=== PATIENT | male | born 1985 | race Caucasian/White ===

== ENCOUNTER 2020-02-18 06:32 | Emergency (ER) | payer MEDICAID ==
[2020-02-18] MEDS ORDERED: Ondansetron 4 MG/2 ML SDV IVPUSH ONE (06:57)
[2020-02-18] MEDS ORDERED: Sodium Chloride 0.9% 10 ML Syringe FLUSH PRN (06:57)
[2020-02-18] MEDS ORDERED: Sodium Chloride 0.9% 1,000 ML IV SCH (07:00)
--- NOTE | 2020-02-18 08:36 | EDM.PDOC ---
ED HPI GENERAL MEDICAL PROBLEM - General Chief Complaint: General Stated Complaint: HEADACHE/HAS A HEART CONDITION Time Seen by Provider: 02/18/20 06:53 Source of Information: Reports: Patient History Limitations: Reports: No Limitations - History of Present Illness INITIAL COMMENTS - FREE TEXT/NARRATIVE: The patient says this morning he had a headache. He took a couple aleve. His gave him some extends for male enhancement. After that he developed chest pain, shortness of breath, nausea and vomiting. He has never taken this medication before. He has no headache now. He has some mild generalized abdominal pain. He is sweaty. He has no medical problems. Onset: Sudden Duration: Hour(s): (1) Location: Reports: Head, Abdomen Quality: Reports: Ache Severity: Mild Improves with: Reports: None Worsens with: Reports: None Associated Symptoms: Reports: Chest Pain, Headaches, Nausea/Vomiting, Shortness of Breath. Denies: Cough, Fever/Chills - Related Data Allergies Allergy/AdvReac Type Severity Reaction Status Date / Time bee venom protein (honey bee) Allergy Difficulty Verified 02/18/20 06:40 Breathing lactose Allergy Diarrhea Verified 02/18/20 06:40 Home Meds: Home Meds Aspirin 81 mg PO DAILY 02/18/20 [History] Ondansetron [Zofran ODT] 4 mg PO Q6H PRN #20 tab.dis 02/18/20 [Rx] Past Medical History Cardiovascular History: Reports: Heart Murmur - Past Surgical History Cardiovascular Surgical History: Reports: Other (See Below) Other Cardiovascular Surgeries/Procedures: murmur and mitral valve sx Social & Family History - Family History Family Medical History: Noncontributory - Tobacco Use Smoking Status *Q: Current Every Day Smoker Years of Tobacco use: 20 Packs/Tins Daily: 0.3 - Caffeine Use Caffeine Use: Reports: Coffee, Soda, Tea - Recreational Drug Use Recreational Drug Use: Yes Recreational Drug Type: Reports: Marijuana/Hashish Recreational Drug Use Frequency: Weekly ED ROS GENERAL - Review of Systems Review Of Systems: See Below Constitutional: Reports: No Symptoms HEENT: Reports: No Symptoms Respiratory: Reports: Shortness of Breath Cardiovascular: Reports: Chest Pain Endocrine: Reports: No Symptoms GI/Abdominal: Reports: Abdominal Pain, Nausea, Vomiting : Reports: No Symptoms Musculoskeletal: Reports: No Symptoms ED EXAM, GENERAL - Physical Exam Exam: See Below Exam Limited By: No Limitations General Appearance: Alert, No Apparent Distress Ears: Normal External Exam Nose: Normal Inspection Head: Atraumatic, Normocephalic Neck: Normal Inspection Respiratory/Chest: No Respiratory Distress, Lungs Clear, Normal Breath Sounds Cardiovascular: Regular Rate, Rhythm, No Edema, No Murmur GI/Abdominal: Soft, Non-Tender, No Organomegaly, No Mass Extremities: Normal Inspection Neurological: Alert, Oriented, No Motor/Sensory Deficits EKG INTERPRETATION EKG Date: 02/18/20 Time: 08:47 Rhythm: NSR Rate (Beats/Min): 63 [place]: Normal P-Wave: Present QRS: Normal ST-T: Normal QT: Normal Course - Vital Signs Last Recorded V/S: Last Vital Signs Temp 96.5 F L 02/18/20 06:41 Pulse 68 02/18/20 06:41 Resp 18 02/18/20 06:41 BP 134/96 H 02/18/20 06:41 Pulse Ox 100 02/18/20 06:41 - Orders/Labs/Meds Orders: Active Orders 24 hr Category Date Time Status Cardiac Monitoring [RC] . DIRECTED Care 02/18/20 06:57 Active EKG Documentation Completion [RC] STAT Care 02/18/20 06:58 Active Peripheral IV Care [RC] . DIRECTED Care 02/18/20 06:57 Active Chest 1V Frontal [CR] Stat Exams 02/18/20 06:58 Taken Head wo Cont [CT] Stat Exams 02/18/20 06:59 Taken Sodium Chloride 0.9% [Normal Saline] 1,000 ml Med 02/18/20 07:00 Active IV .BOLUS Sodium Chloride 0.9% [Saline Flush] Med 02/18/20 06:57 Active 10 ml FLUSH ASDIRECTED PRN ED Antiemetic Medication Reflex [OM.PC] Stat Oth 02/18/20 06:57 Ordered Peripheral IV Insertion Adult [OM.PC] Stat Oth 02/18/20 06:57 Ordered Medication Orders Sodium Chloride (Normal Saline) 1,000 mls @ 1,000 mls/hr IV .BOLUS ROBIN Last Admin: 02/18/20 07:08 Dose: 1,000 mls/hr Documented by: UZMA Sodium Chloride (Saline Flush) 10 ml FLUSH ASDIRECTED PRN PRN Reason: Keep Vein Open Last Admin: 02/18/20 07:08 Dose: 10 ml Documented by: UZMA Labs: Laboratory Tests 02/18/20 02/18/20 Range/Units 06:43 06:43 WBC 7.17 (4.23-9.07) K/mm3 RBC 5.17 (4.63-6.08) M/mm3 Hgb 15.4 (13.7-17.5) gm/dl Hct 45.1 (40.1-51.0) % MCV 87.2 (79.0-92.2) fl MCH 29.8 (25.7-32.2) pg MCHC 34.1 (32.2-35.5) g/dl RDW Std Deviation 41.6 (35.1-43.9) fL Plt Count 295 (163-337) K/mm3 MPV 10.1 (9.4-12.3) fl Neut % (Auto) 45.4 (34.0-67.9) % Lymph % (Auto) 42.3 (21.8-53.1) % [place] % (Auto) 9.1 (5.3-12.2) % Eos % (Auto) 2.2 (0.8-7.0) Baso % (Auto) 1.0 (0.1-1.2) % Neut # (Auto) 3.26 (1.78-5.38) K/mm3 Lymph # (Auto) 3.03 (1.32-3.57) K/mm3 [place] # (Auto) 0.65 (0.30-0.82) K/mm3 Eos # (Auto) 0.16 (0.04-0.54) K/mm3 Baso # (Auto) 0.07 (0.01-0.08) K/mm3 Sodium 145 (136-145) mEq/L Potassium 3.7 (3.5-5.1) mEq/L Chloride 105 (98-107) mEq/L Carbon Dioxide 30 (21-32) mEq/L Anion Gap 13.7 (5-15) BUN 17 (7-18) mg/dL Creatinine 1.2 (0.7-1.3) mg/dL Est Cr Clr Drug Dosing 105.49 mL/min Estimated GFR (MDRD) > 60 (>60) mL/min BUN/Creatinine Ratio 14.2 (14-18) Glucose 99 (74-106) mg/dL Calcium 10.4 H (8.5-10.1) mg/dL Total Bilirubin 0.4 (0.2-1.0) mg/dL AST 21 (15-37) U/L ALT 38 (16-63) U/L Alkaline Phosphatase 96 (46-116) U/L Troponin I < 0.017 (0.00-0.056) ng/mL Total Protein 8.0 (6.4-8.2) g/dl Albumin 4.1 (3.4-5.0) g/dl Globulin 3.9 gm/dL Albumin/Globulin Ratio 1.1 (1-2) Meds: Medications Generic Name Dose Route Start Last Admin Trade Name Freq PRN Reason Stop Dose Admin Sodium Chloride 1,000 mls @ 1,000 mls/hr 02/18/20 07:00 02/18/20 07:08 Normal Saline IV 1,000 mls/hr .BOLUS ROBIN Administration Sodium Chloride 10 ml 02/18/20 06:57 02/18/20 07:08 Saline Flush FLUSH 10 ml ASDIRECTED PRN Administration Keep Vein Open Discontinued Medications Generic Name Dose Route Start Last Admin Trade Name Freq PRN Reason Stop Dose Admin Ondansetron HCl 4 mg 02/18/20 06:57 02/18/20 07:08 Zofran IVPUSH 02/18/20 06:58 4 mg ONETIME ONE Administration - Re-Assessments/Exams Free Text/Narrative Re-Assessment/Exam: 02/18/20 08:53 I ordered an IV NS 1L bolus, zofran 4mg IV, labs, EKG, CT of his head and CXR. His EKG shows a NSR with no acute changes. The CT of his head shows nothing acute. His CBC and CMP look good. His troponin is negative. 02/18/20 08:56 He feels much better. I will discharge him home. 02/18/20 08:56 I feel he may have reacted to the medicine on an empty stomach. Departure - Departure Time of Disposition: 09:00 Disposition: Home, Self-Care 01 Condition: Good Clinical Impression: Vomiting Qualifiers: Vomiting type: unspecified Vomiting Intractability: non-intractable Nausea presence: with nausea Qualified Code(s): R11.2 - Nausea with vomiting, unspecified - Discharge Information *PRESCRIPTION DRUG MONITORING PROGRAM REVIEWED*: Not Applicable *COPY OF PRESCRIPTION DRUG MONITORING REPORT IN PATIENT ALLIE: Not Applicable Prescriptions: Ondansetron [Zofran ODT] 4 mg PO Q6H PRN #20 tab.dis PRN Reason: Nausea\vomiting Referrals: PCP,None [Primary Care Provider] - Elena Livingston, BRIM CUTTER [Nurse Practitioner] - 1 Week Forms: ED Department Discharge, ED Return to Work/School Form Additional Instructions: Drink plenty of fluids. Take the zofran every 6 hours as needed for nausea and vomiting. Rest today. Please return if you are worse. I would avoid taking the extends. It did not appear to agree with you. Sepsis Event Note (ED) - Evaluation Sepsis Screening Result: No Definite Risk - Focused Exam Vital Signs: Vital Signs Temp Pulse Resp BP Pulse Ox 02/18/20 06:41 96.5 F L 68 18 134/96 H 100 - My Orders Last 24 Hours: My Active Orders 02/18/20 06:57 Cardiac Monitoring [RC] . DIRECTED Peripheral IV Care [RC] . DIRECTED Sodium Chloride 0.9% [Saline Flush] 10 ml FLUSH ASDIRECTED PRN ED Antiemetic Medication Reflex [OM.PC] Stat Peripheral IV Insertion Adult [OM.PC] Stat 02/18/20 06:58 EKG Documentation Completion [RC] STAT Chest 1V Frontal [CR] Stat 02/18/20 06:59 Head wo Cont [CT] Stat 02/18/20 07:00 Sodium Chloride 0.9% [Normal Saline] 1,000 ml IV .BOLUS - Assessment/Plan Last 24 Hours: My Active Orders 02/18/20 06:57 Cardiac Monitoring [RC] . DIRECTED Peripheral IV Care [RC] . DIRECTED Sodium Chloride 0.9% [Saline Flush] 10 ml FLUSH ASDIRECTED PRN ED Antiemetic Medication Reflex [OM.PC] Stat Peripheral IV Insertion Adult [OM.PC] Stat 02/18/20 06:58 EKG Documentation Completion [RC] STAT Chest 1V Frontal [CR] Stat 02/18/20 06:59 Head wo Cont [CT] Stat 02/18/20 07:00 Sodium Chloride 0.9% [Normal Saline] 1,000 ml IV .BOLUS
--- NOTE | 2020-02-18 09:44 | CR ---
Chest: Portable view of the chest was obtained. Comparison: No prior chest imaging is available. Heart size and mediastinum are normal. Lungs are clear with no acute parenchymal change. Bony structures are grossly intact. Impression: 1. Nothing acute is appreciated on portable chest x-ray. Diagnostic code #1 This report was dictated in MDT
--- NOTE | 2020-02-18 11:48 | CT ---
Head CT Technique: Multiple axial sections through the brain were obtained. Intravenous contrast was not utilized. Comparison: No prior intracranial imaging. Findings: Motion artifact is seen causing decreased details. Ventricles along with basal cisterns and sulci over the convexities are within normal limits. No definite abnormal parenchymal densities are seen. No evidence of intracranial hemorrhage. No midline shift or mass-effect is seen. Bone window settings were reviewed. Visualized mastoid sinuses and visualized paranasal sinuses show nothing acute. No acute calvarial finding is seen. Impression: 1. Motion artifact. Within this limitation, nothing acute is definitely appreciated. Diagnostic code #2 This report was dictated in MDT I agree with preliminary report from [facility], finalized on 02/18/20, 8:43 AM Central Daylight Time
== END 2020-02-18 09:09 | disposition home or self-care (01) ==
LOC: JD.ED 06:32
DX: R11.2 Nausea with vomiting, unspecified (principal); F17.210 Nicotine dependence, cigarettes, uncomplicated; Z91.030 Bee allergy status; Z91.018 Allergy to other foods; Z79.82 Long term (current) use of aspirin
CPT/HCPCS: 36415; 70450; 71045; 80053; 84484; 85025; 96361; 96374; 99285; J2405; J7030; 99283